=== PATIENT | male | born 1950 | race Caucasian/White ===

== ENCOUNTER 2017-05-04 06:26 | Inpatient (IN) | payer OTHER, MEDICARE ==
[2017-04-29 14:35] LABS: BASOPHILS 0.7 %; BASOPHILS ABSOLUTE 0.07 10/3/uL (0.0-0.16); EOSINOPHILS 1.9 %; EOSINOPHILS ABSOLUTE 0.18 10/3/uL (0.0-0.53); HEMOGLOBIN 11.9 g/dL (13.6-17.8); IMMATURE GRANULOCYTES 0.4 %; IMMATURE GRANULOCYTES ABSOLUTE 0.04 10/3/uL (0.0-0.11); LYMPHOCYTES 29.1 %; LYMPHOCYTES ABSOLUTE 2.74 10/3/uL (0.67-4.30); MEAN PLATELET VOLUME 8.8 fL (9.2-13.0); MONOCYTES 10.9 %; MONOCYTES ABSOLUTE 1.03 10/3/uL (0.21-1.20); NEUTROPHILS ABSOLUTE 5.36 10/3/uL (2.02-8.40); PLATELET COUNT 439 10/3/uL (150-400); RED CELL COUNT 3.97 10/6/uL (4.7-6.1); WHITE BLOOD CELLS 9.4 10/3/uL (4.5-10.5)
[2017-04-29 14:37] LABS: INTERNATIONAL NORMAL RATI 1.1 UNITS (-); PROTIME (NOT ORD) 14.3 SEC (12.0-14.5)
[2017-04-29 14:40] LABS: ASCORBIC ACID (UR NOT ORDER) NEG (NEG); BILIRUBIN, URINE NEGATIVE (NEG); KETONE, URINE NEGATIVE (NEG); LEUKOCYTE ESTERASE(NOT OR NEG (NEG); WBC (NOT ORDERED) (RFLEX) 1 (0-5)
[2017-04-29 14:41] LABS: A/G RATIO 0.8 (0.7-1.9); ALBUMIN 3.1 G/DL (3.5-5.0); ALKALINE PHOSPHATASE 78 U/L (45-117); BUN (BLOOD UREA NITROGEN) 9 MG/DL (6-23); CALCIUM, SERUM 8.5 MG/DL (8.5-10.4); CHLORIDE, SERUM 103 MMOL/L (96-112); CO2 (CARBON DIOXIDE) 28 MMOL/L (24-34); GFR AFRICAN AMERICAN 115 ML/MIN (>=60); GFR NON AFRICAN AMERICAN 99 ML/MIN (>=60); GLOBULIN 3.7 G/DL (2.5-4.1); GLUCOSE, SERUM 83 MG/DL (60-99); HEMATOCRIT 36.1 % (40.0-51.0); MANUAL DIFF NO %; MEAN CORPUSCULAR VOLUME 90.9 fL (80-100); POTASSIUM, SERUM 4.3 MMOL/L (3.5-5.3); SGOT(AST) 13 U/L (5-40); SGPT(ALT) 11 U/L (5-65); SODIUM, SERUM 139 MMOL/L (135-148); TOTAL BILIRUBIN 0.2 MG/DL (0-1.2); TOTAL PROTEIN 6.8 G/DL (6.0-8.5)
--- NOTE | ~2017-05-04 | OP ---
Record Of Operation [facility] [address] [place]. [address] NAME: HEENA JACOBO : 54 STATUS : ADM IN PAT#: [id number] AGE: 67 ADM/REG DATE : 05/04/17 MR#: [id number] REPORT SERV DATE: 05/07/17 DICTATED BY: ROB CRUZ DATE: 05/07/17 REPORT STATUS : Draft TRANSCRIBED BY: MODL DATE: 05/07/17 DATE OF PROCEDURE: 05/04/2017 PREOPERATIVE DIAGNOSES: 1. Right lower lobe non-small cell lung cancer (adenocarcinoma). 2. Chronic obstructive pulmonary disease. 3. Tobacco abuse. 4. Coronary artery disease. POSTOPERATIVE DIAGNOSES: 1. Right lower lobe non-small cell lung cancer (adenocarcinoma). 2. Chronic obstructive pulmonary disease. 3. Tobacco abuse. 4. Coronary artery disease. PROCEDURE PERFORMED: 1. Right thoracotomy with right lower lobectomy. 2. Mediastinal lymph node dissection. 3. Complete decortication of right lung. 4. VATS conversion to open thoracotomy. SURGEON: Rob Cruz M.D. EMPLOYMENT REPRESENTATIVE: Nikita Fuentes and Matty Wan. ANESTHESIA: General. RUSSIAN LANGUAGE PROFESSOR: Killian Carlos M.D. INDICATIONS: This is a 67-year-old gentleman with a long history of smoking who was originally referred to us after being diagnosed with right lower lobe non-small cell lung cancer. He was initially being treated for pneumonia and diagnosis was made with needle biopsy. He had a large right lower lobe lung lesion, greater than 4 cm. The patient was not favoring surgery and was offered CyberKnife therapy which he was evaluated for and felt to be possibly a candidate. In the interim, the patient was seen by me and the patient declined operative intervention, was going to go back for radiation therapy in the form of CyberKnife. The patient was re-seen by Dr. Carlos who felt that the patient would not get adequate therapy with localized radiation treatment because of the size of the primary lesion. The patient was re-referred back to me and we discussed possible operative intervention. The patient's pulmonary function was moderately reduced with an FEV1 that was felt to be reasonable for resection. His FEV1 was 2.28 L and was 55% predicted. DLCO was 56% of predicted. The patient was referred for stress testing which was abnormal. The patient had been seen by Dr. Wagner in the past and returned to Dr. Wagner and underwent cardiac catheterization which did not demonstrate any critical coronary artery disease. After clearance for surgery, we discussed possible operation with the patient and his family and Record Of Operation [address] [address] NAME: HEENA JACOBO : 54 STATUS : ADM IN PAT#: [id number] AGE: 67 ADM/REG DATE : 05/04/17 MR#: [id number] REPORT SERV DATE: 05/07/17 DICTATED BY: ROB CRUZ DATE: 05/07/17 REPORT STATUS : Draft TRANSCRIBED BY: MODRoseanna DATE: 05/07/17 after discussion, they wished to proceed. FINDINGS AT OPERATION: 1. The entire right lung was very stuck to the chest wall, suggestive of previous pneumonia or talc pleurodesis for pneumothorax. The patient's family later denied this, but nonetheless, the patient did have a very adhesed, visceral and parietal pleuras with thickened parietal pleura. The patient's lung was decorticated completely during this procedure. 2. The right lower lobe mass measured 6 cm in diameter. The bronchial margin was negative for malignancy on frozen section. 3. Mediastinal lymph nodes level 7, 8, 10, and 11 were removed. 4. There is no significant effusion. No evidence chest wall invasion of the primary tumor. PATHOLOGIC SPECIMENS: Include the right lower lobe with bronchial margin and lymph nodes. DESCRIPTION OF PROCEDURE: The patient was brought to the operating suite where general anesthesia was induced. Airway was secured with a dual lumen endotracheal tube. Lines secured by Anesthesia. The patient was rolled in a left-sided decubitus position. Right chest prepped with Hibiclens and ChloraPrep and draped with Ioban and sterile sheets. The right lung was deflated by Anesthesia. A single 3 to 4 cm VATS incision was made along the posterior axillary line and 5 intercostal spaces above the costal margin. This was carried through the subcutaneous tissue and chest wall musculature. The intercostal musculature was divided and we tried to enter the chest bluntly. Unfortunately, the lung was very stuck to the chest wall. It took some time to free this up with digital manipulation and finger dissection. Eventually, we were able to place a Protractor soft tissue retractor. We continued this dissection of the lung it from the chest wall as a decortication for some time. Once the right lower lobe was nearly completely decorticated, we were able to feel the right lower lobe tumor. It was very large. Although the right lower lobe was attached to the chest wall and very adhered to it, there did not appear to be any tumor invasion through the visceral pleura and into the chest wall. Once we appreciated the size of the primary tumor, I knew that minimally invasive thoracoscopic resection would not be able to reduce this tumor out of the chest. Therefore this thoracoscopic incision was enlarged. We divided part of the latissimus muscle. Serratus was spared. Eventually we placed a retractor and we continued our dissection of the lung freeing it up circumferentially after a considerable amount of time. Luckily the fissures wound up being fairly complete. After decortication of the lung, we did identify the basilar pulmonary artery going to the right lower lobe. This was circumferentially dissected and it was ligated and divided with thoracoscopic stapler and a vascular load. The superior segmental artery was likewise dissected and it was ligated and divided with the same stapler. The inferior pulmonary ligament was divided up the inferior pulmonary vein. No level 9 lymph nodes were observed; however, a single level 8 lymph node was sent for pathologic examination. The inferior pulmonary vein was then dissected Record Of Operation [facility] [address] [facility] [place]. [address] NAME: HEENA JACOBO : 54 STATUS : ADM IN [facility]#: [id number] AGE: 67 ADM/REG DATE : 05/04/17 MR#: [id number] REPORT SERV DATE: 05/07/17 DICTATED BY: ROB CRUZ DATE: 05/07/17 REPORT STATUS : Draft TRANSCRIBED BY: MODL DATE: 05/07/17 circumferentially. It was ligated and divided with the same vascular stapler and a new vascular load. This allowed us to visualize the right lower lobe bronchus. The fissure was completed anteriorly between the right middle lobe and right lower lobe using cautery. Posteriorly the fissure was completed using a single firing of the 60 mm black staple load. The right lower lobe bronchus was then dissected and the right middle lobe bronchus coming off the bronchus intermedius was preserved. A TA30 reticulating stapler was placed across the right lower lobe bronchus. Test occlusion and ventilation demonstrated good aeration of the right upper and middle lobes. The bronchial stapler was fired and bronchus divided. The right lower lobe was then withdrawn through the thoracotomy incision and sent for pathologic examination. Bronchial margin returned negative for malignancy. The chest was then irrigated with sterile water and saline. Lymph node dissection was then carried out. The lung was retracted anteriorly and the subcarinal region dissected for level 7 lymph nodes which were removed and sent for pathologic examination. During the original dissection of the right lower lobe, multiple level 10 hilar lymph nodes and 11 bronchial lymph nodes removed and sent for pathologic examination. Once the lymph node dissection was carried out, the chest was again irrigated with sterile water and saline. Hemostasis was obtained. Once hemostasis was assured, 2 chest tubes were placed in the pleural cavity and brought through separate stab incisions and secured to the skin. Next, closure was begun. We had fractured the ribs #6 and 7. These were then placed back together using internal rigid fixation. Two single straight plates were placed across each of the fracture sites on the ribs and then secured into position using a total of 8 mm screws. The intercostal space was then closed with #2 Vicryl suture. The latissimus muscle reapproximated with #1 StrataFix. Subcutaneous tissue closed and skin closed in a subcuticular fashion. The patient tolerated the procedure well and there were no complications. Sponge and needle counts were correct. DISPOSITION: The patient was extubated in the operating room and taken to the recovery room in stable and extubated condition. KYLE/JULIAN Rob Cruz M.D. / [id number] CC: Record Of Operation [address] [address] NAME: HEENA JACOBO : 54 STATUS : ADM IN [facility]#: [id number] AGE: 67 ADM/REG DATE : 05/04/17 MR#: [id number] REPORT SERV DATE: 05/07/17 DICTATED BY: ROB CRUZ DATE: 05/07/17 REPORT STATUS : Draft TRANSCRIBED BY: MODL DATE: 05/07/17 Sánchez Pickett M.D.
--- NOTE | ~2017-05-04 | DS ---
Discharge Summary [facility] [address] [place]. [address] NAME: HEENA JACOBO : 54 STATUS : DIS IN PAT#: [id number] AGE: 67 ADM/REG DATE : 05/04/17 MR#: [id number] REPORT SERV DATE: 05/26/17 DICTATED BY: ROB CRUZ DATE: 05/25/17 REPORT STATUS : Draft TRANSCRIBED BY: JULIAN DATE: 05/25/17 Data Collection from hospitalization DISCHARGE DIAGNOSIS(ES): 1. Hna-dcjcn-ivcf lung cancer. 2. Tobacco use. 3. Chronic obstructive pulmonary disease. 4. Increased EtOH use. CONSULTATIONS: None. PROCEDURES PERFORMED: Right thoracotomy with right lower lobectomy and mediastinal lymph node dissection, complete decortication of the right lung, VATS conversion to open thoracotomy, 05/04/2017. 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 Lymph nodes, 10R-7 lymph nodes and lymph node fragments negative for metastatic carcinoma (0/7). Lymph nodes #11R-12 of 15 lymph nodes and lymph node fragments positive for metastatic carcinoma (12/15). Lymph nodes #7-4 of 8 lymph nodes and lymph node fragments positive for metastatic carcinoma (4/8). Lymph nodes #8-1 node negative for metastatic carcinoma (0/1). MEDICATIONS: Ventolin two puffs via inhaler every four hours as needed, aspirin 81 mg daily, Mildred 5/325 one tablet every four hours as needed, Mobic 15 mg daily, Spiriva HandiHaler one inhalation daily as instructed. He was instructed not to continue Tylenol. CONDITION AT DISCHARGE: Stable. DISPOSITION: The patient was discharged home on a regular diet with activities as instructed. He would follow up with Ric Rosado on 05/26/2017. He would follow up with his primary care provider as needed. HOSPITAL COURSE: This is a 67-year-old man who has a long history of smoking and had originally been referred to us after being diagnosed with right lower lobe non-small cell lung cancer. He was initially treated for pneumonia, and the diagnosis was made with a needle biopsy. He has a large right lower lobe lung lesion greater than 4 cm. He was not favoring surgery and was offered CyberKnife therapy for which he was evaluated and felt to possibly be a candidate. In the interim, I saw the patient and the patient declined operative intervention, and he was going to go back for radiation therapy in the form of CyberKnife. Dr. Carlos felt the patient would not get adequate therapy with localized radiation treatment because of the size of the primary lesion. He was referred back to me, and we discussed possible operative intervention. The patient's pulmonary function was moderately reduced with an FEV1 that was felt to be reasonable for resection. FEV1 was 2.28 L and was 55% predicted. DLCO was 56% of predicted. The patient was referred for stress testing which was abnormal. He had been seen by Dr. Wagner in the past, and he returned to Dr. Wagner and underwent a cardiac catheterization which did not demonstrate any critical coronary artery disease. After clearance for surgery, treatment options were discussed, and it was elected to proceed with surgical intervention. He was admitted to the hospital at this time for further evaluation and treatment. Discharge Summary [address] [address] NAME: HEENA JACOBO : 54 STATUS : DIS IN PAT#: [id number] AGE: 67 ADM/REG DATE : 05/04/17 MR#: [id number] REPORT SERV DATE: 05/26/17 DICTATED BY: ROB CRUZ DATE: 05/25/17 REPORT STATUS : Draft TRANSCRIBED BY: JULIAN DATE: 05/25/17 Upon admission, he was taken to the operating room where he underwent the above-mentioned procedure. He tolerated this well. There were no complications. On postop day #1, he had diminished breath sounds. OSCAR and sequential hose were in place. He had no edema. There was an air leak in the chest tube. This was left to wall suction. Repeat chest x-ray was requested. The patient has orthostatic hypotension. He was advised to try ambulation again later in the afternoon. He had an episode of orthostatic hypotension with pulmonary rehab and his blood pressure stabilized after getting back into the bed. On the night, the patient did complain of shortness of breath and was requesting to have his albuterol every four hours rather than six hours. His pain was well controlled. Chest x-ray revealed pneumoperitoneum, but he had no abdominal pain or distress noted. His chest tube had a large air leak. It remained on wall suction. On 05/07/2017, he developed some abdominal pain during the night secondary to the pneumoperitoneum. He was given IV Reglan and Dulcolax. He did have a bowel movement. His air leak had improved. A chest x-ray was going to be checked. IV Reglan was continued. His abdominal distention had improved. The following day, he was doing well. Discharge planning was performed. He was in a normal sinus rhythm. He had 2+ pedal pulses. Discharge planning was performed. On 05/09/2017, he continued to do well. Posterior chest tube was pulled. Discharge instructions were given. Due to his improved and stable condition, he was discharged home with the above-stated instructions. Information collected by: Emily Taylor I submit the above information as my discharge summary. MÓNICA/JULIAN Rob Cruz M.D. / [id number] CC: Rob Cruz M.D.
[~2017-05-04 06:26] MED LIST: 8 HOUR650 MG PO; ASAB PO; MOBIC15 MG PO; SPIRIVA INH; VENTOLIN HFA INH
[2017-05-05 05:06] LABS: BASOPHILS 0.1 %; BASOPHILS ABSOLUTE 0.02 10/3/uL (0.0-0.16); EOSINOPHILS 0 %; IMMATURE GRANULOCYTES 0.3 %; IMMATURE GRANULOCYTES ABSOLUTE 0.05 10/3/uL (0.0-0.11); LYMPHOCYTES 12.2 %; LYMPHOCYTES ABSOLUTE 1.86 10/3/uL (0.67-4.30); MEAN CORPUS HGB CONC 33.8 g/dL (32.0-36.0); MEAN CORPUSCULAR HEMOGLOB 30.5 pg (26.0-34.0); MEAN CORPUSCULAR VOLUME 90.4 fL (80-100); MEAN PLATELET VOLUME 8.8 fL (9.2-13.0); MONOCYTES 9.7 %; MONOCYTES ABSOLUTE 1.48 10/3/uL (0.21-1.20); NEUTROPHILS 77.7 %; NEUTROPHILS ABSOLUTE 11.78 10/3/uL (2.02-8.40); PLATELET COUNT 431 10/3/uL (150-400); RBC DISTRIBUTION WIDTH 15.8 % (12.0-16.0)
[2017-05-05 05:07] LABS: HEMATOCRIT 28.1 % (40.0-51.0); HEMOGLOBIN 9.5 g/dL (13.6-17.8); MANUAL DIFF NO %; RED CELL COUNT 3.11 10/6/uL (4.7-6.1); WHITE BLOOD CELLS 15.2 10/3/uL (4.5-10.5)
[2017-05-05 05:15] LABS: BUN (BLOOD UREA NITROGEN) 12 MG/DL (6-23); CALCIUM, SERUM 8.2 MG/DL (8.5-10.4); CHLORIDE, SERUM 101 MMOL/L (96-112); CO2 (CARBON DIOXIDE) 24 MMOL/L (24-34); CREATININE 0.64 MG/DL (0.70-1.30); GFR AFRICAN AMERICAN 119 ML/MIN (>=60); GFR NON AFRICAN AMERICAN 103 ML/MIN (>=60); GLUCOSE, SERUM 110 MG/DL (60-99); POTASSIUM, SERUM 4.9 MMOL/L (3.5-5.3); SODIUM, SERUM 134 MMOL/L (135-148)
[2017-05-06 05:12] LABS: BASOPHILS 0.3 %; BASOPHILS ABSOLUTE 0.03 10/3/uL (0.0-0.16); EOSINOPHILS 0.3 %; EOSINOPHILS ABSOLUTE 0.03 10/3/uL (0.0-0.53); HEMOGLOBIN 7.6 g/dL (13.6-17.8); IMMATURE GRANULOCYTES 0.4 %; IMMATURE GRANULOCYTES ABSOLUTE 0.04 10/3/uL (0.0-0.11); LYMPHOCYTES 19.2 %; MEAN CORPUS HGB CONC 34.1 g/dL (32.0-36.0); MEAN CORPUSCULAR HEMOGLOB 30.5 pg (26.0-34.0); MEAN CORPUSCULAR VOLUME 89.6 fL (80-100); MEAN PLATELET VOLUME 8.9 fL (9.2-13.0); MONOCYTES ABSOLUTE 1.42 10/3/uL (0.21-1.20); NEUTROPHILS 66.8 %; NEUTROPHILS ABSOLUTE 7.29 10/3/uL (2.02-8.40); PLATELET COUNT 363 10/3/uL (150-400); RBC DISTRIBUTION WIDTH 15.9 % (12.0-16.0); RED CELL COUNT 2.49 10/6/uL (4.7-6.1); WHITE BLOOD CELLS 10.9 10/3/uL (4.5-10.5)
[2017-05-06 05:15] LABS: HEMATOCRIT 22.3 % (40.0-51.0); MANUAL DIFF NO %
[2017-05-06 05:48] LABS: BUN (BLOOD UREA NITROGEN) 10 MG/DL (6-23); CALCIUM, SERUM 8.1 MG/DL (8.5-10.4); CHLORIDE, SERUM 101 MMOL/L (96-112); CO2 (CARBON DIOXIDE) 28 MMOL/L (24-34); CREATININE 0.58 MG/DL (0.70-1.30); GFR AFRICAN AMERICAN 124 ML/MIN (>=60); GFR NON AFRICAN AMERICAN 107 ML/MIN (>=60); GLUCOSE, SERUM 114 MG/DL (60-99); SODIUM, SERUM 135 MMOL/L (135-148)
[2017-05-06 13:54] LABS: HEMATOCRIT 22.1 % (40.0-51.0); HEMOGLOBIN 7.6 g/dL (13.6-17.8)
[2017-05-07 04:36] LABS: BASOPHILS 0.3 %; BASOPHILS ABSOLUTE 0.03 10/3/uL (0.0-0.16); EOSINOPHILS 1.1 %; EOSINOPHILS ABSOLUTE 0.13 10/3/uL (0.0-0.53); HEMATOCRIT 21.7 % (40.0-51.0); HEMOGLOBIN 7.3 g/dL (13.6-17.8); IMMATURE GRANULOCYTES 0.3 %; IMMATURE GRANULOCYTES ABSOLUTE 0.03 10/3/uL (0.0-0.11); LYMPHOCYTES 20.2 %; LYMPHOCYTES ABSOLUTE 2.38 10/3/uL (0.67-4.30); MEAN CORPUS HGB CONC 33.6 g/dL (32.0-36.0); MEAN CORPUSCULAR HEMOGLOB 30.4 pg (26.0-34.0); MEAN CORPUSCULAR VOLUME 90.4 fL (80-100); MEAN PLATELET VOLUME 8.8 fL (9.2-13.0); MONOCYTES 10.3 %; MONOCYTES ABSOLUTE 1.22 10/3/uL (0.21-1.20); NEUTROPHILS 67.8 %; PLATELET COUNT 349 10/3/uL (150-400); WHITE BLOOD CELLS 11.8 10/3/uL (4.5-10.5)
[2017-05-07 04:43] LABS: BUN (BLOOD UREA NITROGEN) 7 MG/DL (6-23); CALCIUM, SERUM 8.1 MG/DL (8.5-10.4); CHLORIDE, SERUM 100 MMOL/L (96-112); CO2 (CARBON DIOXIDE) 31 MMOL/L (24-34); CREATININE 0.69 MG/DL (0.70-1.30); GFR AFRICAN AMERICAN 115 ML/MIN (>=60); GFR NON AFRICAN AMERICAN 100 ML/MIN (>=60); GLUCOSE, SERUM 105 MG/DL (60-99); POTASSIUM, SERUM 4.1 MMOL/L (3.5-5.3); SODIUM, SERUM 134 MMOL/L (135-148)
[2017-05-07 04:44] LABS: MANUAL DIFF NO %
[2017-05-08 04:35] LABS: BASOPHILS 0.3 %; BASOPHILS ABSOLUTE 0.03 10/3/uL (0.0-0.16); EOSINOPHILS 1.6 %; EOSINOPHILS ABSOLUTE 0.19 10/3/uL (0.0-0.53); HEMATOCRIT 21.9 % (40.0-51.0); HEMOGLOBIN 7.4 g/dL (13.6-17.8); IMMATURE GRANULOCYTES 0.3 %; IMMATURE GRANULOCYTES ABSOLUTE 0.04 10/3/uL (0.0-0.11); LYMPHOCYTES 18.7 %; LYMPHOCYTES ABSOLUTE 2.17 10/3/uL (0.67-4.30); MEAN CORPUS HGB CONC 33.8 g/dL (32.0-36.0); MEAN CORPUSCULAR HEMOGLOB 30.3 pg (26.0-34.0); MEAN CORPUSCULAR VOLUME 89.8 fL (80-100); MEAN PLATELET VOLUME 8.7 fL (9.2-13.0); MONOCYTES 11.6 %; MONOCYTES ABSOLUTE 1.35 10/3/uL (0.21-1.20); NEUTROPHILS 67.5 %; NEUTROPHILS ABSOLUTE 7.82 10/3/uL (2.02-8.40); PLATELET COUNT 401 10/3/uL (150-400); RBC DISTRIBUTION WIDTH 15.9 % (12.0-16.0); RED CELL COUNT 2.44 10/6/uL (4.7-6.1); WHITE BLOOD CELLS 11.6 10/3/uL (4.5-10.5)
[2017-05-08 04:36] LABS: MANUAL DIFF NO %
[2017-05-08 04:47] LABS: BUN (BLOOD UREA NITROGEN) 8 MG/DL (6-23); CALCIUM, SERUM 8.2 MG/DL (8.5-10.4); CHLORIDE, SERUM 101 MMOL/L (96-112); CO2 (CARBON DIOXIDE) 29 MMOL/L (24-34); CREATININE 0.49 MG/DL (0.70-1.30); GFR AFRICAN AMERICAN 133 ML/MIN (>=60); GFR NON AFRICAN AMERICAN 115 ML/MIN (>=60); GLUCOSE, SERUM 96 MG/DL (60-99); POTASSIUM, SERUM 4.1 MMOL/L (3.5-5.3); SODIUM, SERUM 137 MMOL/L (135-148)
[2017-05-09 06:49] LABS: BASOPHILS 0.5 %; BASOPHILS ABSOLUTE 0.05 10/3/uL (0.0-0.16); EOSINOPHILS 2.5 %; EOSINOPHILS ABSOLUTE 0.26 10/3/uL (0.0-0.53); HEMATOCRIT 23.3 % (40.0-51.0); HEMOGLOBIN 7.9 g/dL (13.6-17.8); IMMATURE GRANULOCYTES 0.6 %; IMMATURE GRANULOCYTES ABSOLUTE 0.06 10/3/uL (0.0-0.11); LYMPHOCYTES 17.6 %; LYMPHOCYTES ABSOLUTE 1.83 10/3/uL (0.67-4.30); MEAN CORPUS HGB CONC 33.9 g/dL (32.0-36.0); MEAN CORPUSCULAR HEMOGLOB 30.4 pg (26.0-34.0); MEAN CORPUSCULAR VOLUME 89.6 fL (80-100); MEAN PLATELET VOLUME 8.5 fL (9.2-13.0); MONOCYTES 12.1 %; MONOCYTES ABSOLUTE 1.26 10/3/uL (0.21-1.20); NEUTROPHILS 66.7 %; NEUTROPHILS ABSOLUTE 6.92 10/3/uL (2.02-8.40); RBC DISTRIBUTION WIDTH 15.5 % (12.0-16.0); WHITE BLOOD CELLS 10.4 10/3/uL (4.5-10.5)
[2017-05-09 06:53] LABS: BUN (BLOOD UREA NITROGEN) 8 MG/DL (6-23); CALCIUM, SERUM 8.8 MG/DL (8.5-10.4); CHLORIDE, SERUM 99 MMOL/L (96-112); CO2 (CARBON DIOXIDE) 30 MMOL/L (24-34); CREATININE 0.52 MG/DL (0.70-1.30); GFR AFRICAN AMERICAN 130 ML/MIN (>=60); GFR NON AFRICAN AMERICAN 112 ML/MIN (>=60); GLUCOSE, SERUM 103 MG/DL (60-99); MANUAL DIFF NO %; PLATELET COUNT 528 10/3/uL (150-400); SODIUM, SERUM 138 MMOL/L (135-148)
[2017-05-09] MEDS ORDERED: NORCO1 TA1 PO (13:27)
== END 2017-05-09 15:36 | disposition home or self-care (01) | DRG 164 ==
LOC: SDC/OF 06:26 → PACU 14:15 → 5NO 15:49
PROVIDERS: Nurse Practitioner Adult Health; Thoracic Surgery (Cardiothoracic Vascular Surgery)
PROC: 0BTF0ZZ Resection of Right Lower Lung Lobe, Open Approach (ICD-10-PCS; principal; 2017-05-04 10:45)
PROC: 0BDN0ZZ Extraction of Right Pleura, Open Approach (ICD-10-PCS; 2017-05-04 10:45)
PROC: 07B70ZZ Excision of Thorax Lymphatic, Open Approach (ICD-10-PCS; 2017-05-04 10:45)
DX: C34.31 Malignant neoplasm of lower lobe, right bronchus or lung (principal); J95.812 Postprocedural air leak; J44.9 Chronic obstructive pulmonary disease, unspecified; C77.1 Secondary and unspecified malignant neoplasm of intrathoracic lymph nodes; I25.10 Atherosclerotic heart disease of native coronary artery without angina pectoris; F17.210 Nicotine dependence, cigarettes, uncomplicated; I95.1 Orthostatic hypotension; D64.9 Anemia, unspecified
CPT/HCPCS: 36415; 71010; 71020; 80048; 80053; 81001; 82962; 85014; 85018; 85025; 85610; 86850; 86900; 86901; 86920; 87641; 88305; 88307; 88309; 88313; 88331; 88341; 88342; 93005; 94640; A9270-GY; C1713; J0690; J2250; J2370; J2405; J2710; J2765; J2795; J3010; P9045

== ENCOUNTER 2017-05-16 17:34 | Emergency (ER) | payer OTHER, MEDICARE ==
[2017-05-16 12:31] LABS: BASOPHILS 0.8 %; BASOPHILS ABSOLUTE 0.15 10/3/uL (0.0-0.16); EOSINOPHILS ABSOLUTE 0.18 10/3/uL (0.0-0.53); HEMOGLOBIN 9.2 g/dL (13.6-17.8); IMMATURE GRANULOCYTES 1.1 %; IMMATURE GRANULOCYTES ABSOLUTE 0.19 10/3/uL (0.0-0.11); LYMPHOCYTES 13.3 %; LYMPHOCYTES ABSOLUTE 2.41 10/3/uL (0.67-4.30); MEAN CORPUS HGB CONC 33.5 g/dL (32.0-36.0); MEAN CORPUSCULAR HEMOGLOB 29.7 pg (26.0-34.0); MEAN CORPUSCULAR VOLUME 88.7 fL (80-100); MONOCYTES 8.4 %; MONOCYTES ABSOLUTE 1.52 10/3/uL (0.21-1.20); NEUTROPHILS 75.4 %; NEUTROPHILS ABSOLUTE 13.63 10/3/uL (2.02-8.40); RBC DISTRIBUTION WIDTH 15.6 % (12.0-16.0)
[2017-05-16 12:32] LABS: ER CBC TAT 0 Hrs 08 Mins; HEMATOCRIT 27.5 % (40.0-51.0); MANUAL DIFF NO %; PLATELET COUNT 828 10/3/uL (150-400); WHITE BLOOD CELLS 18.1 10/3/uL (4.5-10.5)
[2017-05-16 12:41] LABS: INTERNATIONAL NORMAL RATI 1.2 UNITS (-); PROTIME (NOT ORD) 15.5 SEC (12.0-14.5)
[2017-05-16 12:42] LABS: PARTIAL THROMBO TIME 35.1 SEC (22.5-37.2)
[2017-05-16 12:48] LABS: BUN (BLOOD UREA NITROGEN) 9 MG/DL (6-23); CALCIUM, SERUM 9.6 MG/DL (8.5-10.4); CHEST PAIN PROFILE TAT 0 Hrs 24 Mins; CHLORIDE, SERUM 100 MMOL/L (96-112); CO2 (CARBON DIOXIDE) 27 MMOL/L (24-34); CREATININE 0.86 MG/DL (0.70-1.30); GFR AFRICAN AMERICAN 105 ML/MIN (>=60); GFR NON AFRICAN AMERICAN 91 ML/MIN (>=60); GLUCOSE, SERUM 105 MG/DL (60-99); POTASSIUM, SERUM 4.5 MMOL/L (3.5-5.3); SODIUM, SERUM 132 MMOL/L (135-148); TROPONIN I <0.02 NG/ML (<0.05)
[2017-05-16 12:54] LABS: RBC MORPHOLOGY NORM (NORMAL)
[~2017-05-16 17:34] MED LIST changes: +NORCO1 TA1 PO
== END 2017-05-16 22:39 | disposition home or self-care (01) ==
LOC: ER 17:34
PROVIDERS: Hospitalist
DX: J93.9 Pneumothorax, unspecified (principal); D72.829 Elevated white blood cell count, unspecified; J44.9 Chronic obstructive pulmonary disease, unspecified; Z88.5 Allergy status to narcotic agent; Z79.82 Long term (current) use of aspirin; Z79.891 Long term (current) use of opiate analgesic; Z79.899 Other long term (current) drug therapy
CPT/HCPCS: 71020; 71275; 80048; 83735; 83880; 84484; 85025; 85610; 85730; 93005; 94640; 96365; 99285; A9270-GY; J1956; Q9967